=== PATIENT | female | born 2000 | race African-American/Black ===

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

== ENCOUNTER → 2021-01-09 | Emergency (ER) | payer SELFPAY ==
[2021-01-09 13:53] VITALS: BP 113/67; PULSE 89; TEMP 98; BMI 20.7
== END ==
LOC: JER 13:17
DX: R05.1 Acute cough (principal); R06.02 Shortness of breath
CPT/HCPCS: 99281-25